=== PATIENT | male | born 1995 | race Caucasian/White ===

== ENCOUNTER 2022-03-11 19:52 | Emergency (ER) | payer SELFPAY ==
[~2022-03-11] VITALS: Ht 190.5 cm; Wt 122.7 kg
[2022-03-11] MEDS ORDERED: RIOMET500 MG/51 (20:08)
[2022-03-11] MEDS ORDERED: SERTRALINE H20 MG/ML PO (20:08)
[2022-03-11] MEDS ORDERED: PAXLOVID CO-PA1 EACH PO (21:10)
[2022-03-11] MEDS ORDERED: PROAIR HFA0.09 MG/AC IH (21:11)
[2022-03-11 21:28] VITALS: BP 130/82
== END 2022-03-11 21:31 | disposition home or self-care (01) ==
LOC: ED 19:52
DX: U07.1 COVID-19 (principal); R09.81 Nasal congestion; R05.9 Cough, unspecified; R51.9 Headache, unspecified; M79.10 Myalgia, unspecified site; R00.0 Tachycardia, unspecified; J34.89 Other specified disorders of nose and nasal sinuses; R50.9 Fever, unspecified; R11.0 Nausea; F17.200 Nicotine dependence, unspecified, uncomplicated

== ENCOUNTER 2022-08-25 22:53 | Emergency (ER) | payer SELFPAY ==
[~2022-08-25] VITALS: Ht 188 cm; Wt 134.9 kg
[~2022-08-25 22:53] MED LIST: PAXLOVID CO-PA1 EACH PO; PROAIR HFA0.09 MG/AC IH; RIOMET500 MG/51; SERTRALINE H20 MG/ML PO
[2022-08-25] MEDS ORDERED: NOVOLOG 100U100 U/ML SQ (23:14)
[2022-08-26] VITALS: BP 137/81
== END 2022-08-26 | disposition home or self-care (01) ==
LOC: ED 22:53
DX: J98.8 Other specified respiratory disorders (principal); Z87.891 Personal history of nicotine dependence